=== PATIENT | male | born 2000 | race Caucasian/White ===

== ENCOUNTER 2019-01-25 10:17 | Emergency (ER) | payer OTHER ==
--- NOTE | 2019-01-25 11:09 | UC ---
Laceration HPI - HPI Summary HPI Summary: 18 y/o male presents to urgent care c/o Pt cut himself in L thumb with a hacksaw at work around 0900 today. - History Of Current Complaint Chief Complaint: Nadya Stated Complaint: WC-LT THUMB LAC Time Seen by Provider: 01/25/19 11:04 Hx Obtained From: Patient Laceration Location: Finger - left thumb laceration w/ a hacksaw Mechanism Of Injury: Sharp Trauma Onset/Duration: Lasting Hours - 2hrs Severity: Mild Pain Intensity: 2 Pain Scale Used: 0-10 Numeric Aggravating Factors: Movement Related History: Occupational Injury, Dominant Hand Right - Allergies/Home Medications Allergies/Adverse Reactions: Allergies Allergy/AdvReac Type Severity Reaction Status Date / Time No Known Allergies Allergy Verified 01/25/19 10:54 Home Medications: Home Medications Loratadine 1 tab PO DAILY 01/25/19 [History Confirmed 01/25/19] PMH/Surg Hx/FS Hx/Imm Hx Previously Healthy: Yes - Pt denies PMHX - Surgical History Surgical History: None - Family History Known Family History: Positive: Seizure Disorder - Social History Occupation: Employed Full-time Lives: With Family Alcohol Use: Rare Substance Use Type: Marijuana Substance Use Comment - Amount & Last Used: daily Smoking Status (MU): Never Smoked Tobacco - Immunization History Hx Tetanus, Diphtheria Vaccination: No - unsure Physical Exam Vital Signs: Initial Vital Signs Temp 98.2 F 01/25/19 10:49 Pulse 91 01/25/19 10:49 Resp 16 01/25/19 10:49 BP 108/64 01/25/19 10:49 Pulse Ox 98 01/25/19 10:49 Laceration Repair - Laceration Repair 1 Description: Linear - semilunar superficial lineal laceration Laceration Size After Repair: Length (cm) - 2.0cm in size Modified For Repair: No Type Injection: Local Anesthesia Used: 1.0% Lido - 2ml Cleansing Completed Via Routine Prep: Yes Irrigation With Pressure Irrigation Device: Yes Closure Material: Sutures - 6 Closure Method: Single Layer Suture Of: Skin, SQ Suture Type: Nylon - 5.0 Laceration Course/Dx - Differential Dx - Laceration/Wound Differental Diagnoses: Abrasion, Laceration, Puncture Wound, Tendon Laceration - Diagnosis Provider Diagnosis: Laceration of left thumb Discharge - Sign-Out/Discharge Documenting (check all that apply): Patient Departure - D/C home All imaging exams completed and their final reports reviewed: No Studies - Discharge Plan Condition: Stable Disposition: HOME Patient Education Materials: Care For Your Stitches (DC), Laceration (ED) Referrals: [facility] [Outside] - 1 Week Additional Instructions: 1-Please apply Bacitracin or triple topical antibiotic over the wound. Keep wound clean and dry 2- F/u suture removal in 10-12 days w/ your PCP or here at the urgent care. 3-Take Ibuprofen or Tylenol PO q6-8hrs prn for pain or swelling. 4- If you develop fever or redness around your thumb please return to the Urgent care for further management. 5- You were given booster for Tdap vaccine today - Billing Disposition and Condition Condition: STABLE Disposition: Home
[2019-01-25] MEDS ORDERED: Tetan/Diph/Pertus SYR(Tdap)* 0.5 ML SYR(BOOSTRIX) use SYR IM ONE (11:31)
[2019-01-25] MEDS ORDERED: Lidocaine 1%* 5 ML VIAL INJ ONE (11:31)
== END 2019-01-25 12:17 | disposition home or self-care (01) ==
LOC: UCCORT 10:17
DX: S61.012A Laceration without foreign body of left thumb without damage to nail, initial encounter (principal); W27.0XXA Contact with workbench tool, initial encounter; Y93.89 Activity, other specified; Y92.89 Other specified places as the place of occurrence of the external cause
CPT/HCPCS: 12001; 90471; 90715; 99201; G0463